=== PATIENT | male | born 1960 | race African-American/Black ===

== ENCOUNTER 2017-02-08 06:17 | Day surgery (SDC) | payer OTHER ==
[~2017-02-08] VITALS: Ht 172.7 cm; Wt 67.4 kg
[2017-02-08] VITALS (9 sets, daily range): BP systolic 115–184; BP diastolic 58–93; PULSE 76–86; RESP 16–18; Ht 172.7 cm; Wt 67.4 kg
[~2017-02-08 06:17] MED LIST: UNK ABX
[2017-02-08] MEDS ORDERED: GLYCOPYRROLATE 0.4 MG INJ ONE (06:40)
[2017-02-08] MEDS ORDERED: ROCURONIUM 50 MG INJ ONE (06:41)
[2017-02-08] MEDS ORDERED: MIDAZOLAM 1 MG/ML 2 ML INJ ONE (06:41)
[2017-02-08] MEDS ORDERED: LIDOCAINE 2% (SDV) 5 ML INJ ONE (06:41)
[2017-02-08] MEDS ORDERED: NEOSTIGMINE 3 MG/3 ML SYRINGE ONE (06:41)
[2017-02-08] MEDS ORDERED: PROPOFOL 20 ML ONE (06:41)
[2017-02-08] MEDS ORDERED: FENTAnyl 50 MCG/ML VIAL ONE (06:41)
[2017-02-08] MEDS ORDERED: ONDANSETRON 4 MG INJ ONE (06:42)
[2017-02-08] MEDS ORDERED: DEXAMETHASONE 4 MG/ML 1 ML INJ ONE (06:42)
[2017-02-08] MEDS ORDERED: ATROPINE 1 MG/10 ML SYRINGE IV PRN (07:00)
[2017-02-08] MEDS ORDERED: FENTAnyl 50 MCG/ML VIAL IV PRN ×2 (07:00)
[2017-02-08] MEDS ORDERED: MEPERIDINE 25 MG INJ IV PRN (07:00)
[2017-02-08] MEDS ORDERED: ONDANSETRON 4 MG INJ IV PRN (07:00)
[2017-02-08] MEDS ORDERED: LABETALOL HCL 20MG INJ IV PRN (07:00)
[2017-02-08] MEDS ORDERED: HYDROmorphONE (0.2 MG/ML) 10ML SYG IV PRN ×3 (07:00)
[2017-02-08] MEDS ORDERED: OXYCODONE/ACETAMINOPHEN (5/325) TAB PO PRN ×2 (07:00)
[2017-02-08] MEDS ORDERED: MIDAZOLAM 1 MG/ML 2 ML INJ IV PRN (07:00)
[2017-02-08] MEDS ORDERED: hydrALAzine 20 MG INJ IV PRN (07:00)
[2017-02-08] MEDS ORDERED: morphine (1 MG/ML) 10ML SYRINGE IV PRN ×3 (07:00)
[2017-02-08] MEDS ORDERED: EPHEDrine SULFATE 50 MG/5 ML SYG IV PRN (07:00)
[2017-02-08] MEDS ORDERED: DIPHENHYDRAMINE 50 MG INJ IV PRN (07:00)
[2017-02-08 07:18] LABS: ADD SCAN DIFF NO
--- NOTE | 2017-02-08 07:19 | HPN ---
Date/Time of Note Date/Time of Note DATE: 02/08/17 TIME: 07:19 Interval H&P Admission Note Pt. seen H&P reviewed: No system changes YE IRBY MD Feb 08, 2017 07:19
[2017-02-08 07:29] LABS: BASOPHILS % 0.8 % (0.0-2.0); EOSINOPHILS # 0.5 10^3/ul (0.0-0.5); EOSINOPHILS % 9.7 % (0.0-7.0); HEMATOCRIT 34.3 % (42.0-52.0); HEMOGLOBIN 10.4 g/dl (14.0-18.0); LYMPHOCYTES # 0.9 10^3/ul (0.8-2.9); LYMPHOCYTES % 17.8 % (15.0-51.0); MEAN CORPUSCULAR HGB CONC 30.3 g/dl (32.0-37.0); MEAN CORPUSCULAR VOLUME 89.1 fl (82.0-101.0); MEAN PLATELET VOLUME 9.2 fl (7.4-10.4); MONOCYTE # 0.4 10^3/ul (0.3-0.9); MONOCYTES % 7.1 % (0.0-11.0); NEUTROPHIL # 3.2 10^3/ul (1.6-7.5); PLATELET COUNT 246 10^3/UL (140-415); RED BLOOD COUNT 3.85 10^6/ul (4.70-6.10); RED CELL DISTRIBUTION WIDTH 15.1 % (11.5-14.5); WHITE BLOOD COUNT 4.9 10^3/ul (4.8-10.8)
[2017-02-08] MEDS ORDERED: OMEG300C3 PO (07:34)
[2017-02-08 07:39] LABS: INR 0.94; PROTIME 12.6 Sec (12.2-14.2)
[2017-02-08] MEDS ORDERED: LIDOCAINE 1% (MPF) 30 ML INJ ONE (07:39)
[2017-02-08] MEDS ORDERED: HEPARIN 1000 UNITS/ML 10 ML INJ ONE (07:39)
[2017-02-08] MEDS ORDERED: GELATIN SIZE 100 SPONGE ONE (07:39)
[2017-02-08] MEDS ORDERED: THROMBIN 5000 UNIT VIAL ONE (07:39)
[2017-02-08 07:40] LABS: PARTIAL THROMBOPLASTIN TIME 33.2 Sec (25.0-35.0)
[2017-02-08 07:42] LABS: CALCIUM 8.2 mg/dl (8.4-10.2); CREATININE 8.22 mg/dl (0.61-1.24); POTASSIUM 4.2 mmol/L (3.5-5.1)
[2017-02-08] MEDS ORDERED: LIDOCAINE 1% (MPF) 30 ML INJ INJ ONE (07:45)
[2017-02-08] MEDS ORDERED: HEPARIN 1000 UNITS/ML 10 ML INJ IRR ONE (07:45)
--- NOTE | 2017-02-08 09:00 | RADRPT ---
Vent Rate: 74 bpm RR Interval: 0 msec AK Interval: 152 msec QRS Duration: 90 msec QT Interval: 422 msec QTC Interval: 468 msec P-R-T Dante: 53 - 58 - 42 degrees Normal sinus rhythm Cannot rule out Anterior infarct , age undetermined Abnormal ECG Nonspecific ST-T changes No previous tracing available for comparison Electronically Signed By: Brett Merrill [id number]
[2017-02-08] MEDS ORDERED: CEFAZOLIN 1 GM INJ ONE (10:37)
--- NOTE | 2017-02-11 10:33 | OPR ---
DATE OF OPERATION: 02/08/2017 PREOPERATIVE DIAGNOSIS: End-stage renal disease. POSTOPERATIVE DIAGNOSIS: End-stage renal disease. PROCEDURE PERFORMED: Creation of left brachiocephalic AV fistula. SURGEON: Ye Clement MD ANESTHESIA: Local with sedation. ESTIMATED BLOOD LOSS: Minimal. COMPLICATIONS: No intraprocedural complications. INDICATIONS: This is a 56-year-old gentleman with end-stage renal disease, dialyzing via Perm-A-Cat h. He has a good left upper arm cephalic vein on vein mapping. Cephalic vein in the forearm has mu ltiple branches and is very small along its entire length. DESCRIPTION OF PROCEDURE: Patient was brought to the operating room and placed on the table in supi ne position. Left arm was prepped and draped in the usual sterile fashion. I began by infiltrating across the antecubital crease using about 10 mL of 1% Xylocaine. I then made an incision across th e antecubital crease and carefully dissected out the cephalic vein at the elbow and the brachial art mena at the elbow after cutting the connective tissue overlying the brachial artery pulse. After I f tamika up the cephalic vein and traced it down into the forearm, I ligated it distally with surgical c lips and divided it. I then clamped the brachial artery proximally and distally, made an 8 mm long anterior arteriotomy and the anastomosed the end of the vein to the side of the artery using 6-0 Pro jacinta suture in a running standard vascular surgical fashion. I removed the clamps. There was a sof t thrill. There was still some spasm in the artery, but the vein dilated up nicely. There was good hemostasis. I closed the skin incision in 2 layers using an inner layer of 3-0 Vicryl and an outer layer of 4-0 Monocryl subcuticular sutures. Sterile dressing was applied. The patient was then tr ansferred to the recovery room in stable condition. He tolerated the procedure well without any com plications. Dictated By: YE NEWTON/LILY Conf#: [id number] DID#: [id number]
== END 2017-02-08 11:15 | disposition home or self-care (01) ==
LOC: SDS 06:17
PROVIDERS: ATTEND Surgery Vascular Surgery
DX: I12.0 Hypertensive chronic kidney disease with stage 5 chronic kidney disease or end stage renal disease (principal); N18.6 End stage renal disease; Z86.718 Personal history of other venous thrombosis and embolism
CPT/HCPCS: 36821; 80048; 85025; 85610; 85730; 93005; J0360; J0690; J1100; J1644; J2175; J2250; J2405; J2710; J3010; Z7512; Z7610; C1725

== ENCOUNTER 2017-04-12 09:05 | Day surgery (SDC) | END 2017-04-12 14:15 | disposition home or self-care (01) | DX: I12.0 Hypertensive chronic kidney disease with stage 5 chronic kidney disease or end stage renal disease (principal); N18.6 End stage renal disease | CPT/HCPCS: 36821; 71010; 84132; 93005; J0131; J0690; J1100; J1644; J2405; J3010; Z7512; Z7610 ==